=== PATIENT | female | born 1985 | race Caucasian/White ===

== ENCOUNTER 2017-03-16 17:20 | Emergency (ER) | payer MEDICAID ==
[~2017-03-16] VITALS: Ht 160 cm; Wt 62.3 kg
[2017-03-16 18:23] LABS: HEMATOCRIT 39.8 % (34.6-47.8); HEMOGLOBIN 13.5 g/dL (11.7-16.4); WHITE BLOOD COUNT 6.9 x10^3/uL (3.4-10)
[2017-03-16 18:37] LABS: BLOOD UREA NITROGEN 15 mg/dL (7-18)
[2017-03-16 19:40] VITALS: BP 112/72
== END 2017-03-16 19:50 | disposition home or self-care (01) ==
LOC: ED 19:43
DX: R00.0 Tachycardia, unspecified (principal); Z87.891 Personal history of nicotine dependence
CPT/HCPCS: 36415; 71010; 80048; 82040; 84439; 84443; 85025; 93005; 99285

== ENCOUNTER 2017-08-05 19:47 | Inpatient (IN) | payer MEDICAID ==
[~2017-08-05] VITALS: Ht 160 cm; Wt 67.5 kg
[2017-08-05 20:14] LABS: BASOPHILS # (AUTO) 0.07 x10^3/uL (0-0.1); BASOPHILS % (AUTO) 1 % (0-1); EOSINOPHILS # (AUTO) 0.34 x10^3/uL (0-0.4); EOSINOPHILS % (AUTO) 5 % (1-7); LYMPHOCYTES # (AUTO) 2.14 x10^3/uL (1-3.4); LYMPHOCYTES % (AUTO) 28 % (22-44); MD NO; MEAN CORPUSCULAR HEMOGLOBIN 29.5 pg (27.0-34.8); MEAN CORPUSCULAR HGB CONC 33.6 g/dL (32.4-35.8); MEAN CORPUSCULAR VOLUME 87.6 fL (80-100); MONOCYTES # (AUTO) 0.45 x10^3/uL (0.2-0.8); MONOCYTES % (AUTO) 6 % (2-9); NEUTROPHILS # (AUTO) 4.53 x10^3/uL (1.8-6.8); NEUTROPHILS % (AUTO) 60 % (42-75); PLATELET COUNT 339 x10^3/uL (130-400); RED CELL DISTRIBUTION WIDTH 13.4 % (9.6-15.2)
[2017-08-05 20:23] LABS: INTERNATIONAL NORMALIZED RATIO 0.97 (0.93-1.1)
[2017-08-05 20:25] LABS: ALANINE AMINOTRANSFERASE 19 U/L (12-78); ALBUMIN 3.9 g/dL (3.4-5.0); ANION GAP 7 mmol/L (5-15); CALCIUM 8.8 mg/dL (8.5-10.1); CHLORIDE 108 mmol/L (98-107); CREATININE 0.77 mg/dL (0.55-1.02)
[2017-08-05 20:27] LABS: ALKALINE PHOSPHATASE 47 U/L (45-117); BILIRUBIN,TOTAL 0.2 mg/dL (0.2-1.0); TOTAL PROTEIN 7.2 g/dL (6.4-8.2)
[2017-08-05] MEDS ORDERED: SODIUM CHLORIDE FLUSH 10ML SYR IVF ONE (20:30)
[2017-08-05] MEDS ORDERED: SODIUM CHLORIDE FLUSH 10ML SYR IVF PRN (23:00)
[2017-08-06 00:15] VITALS: BP 118/75
[2017-08-06] MEDS ORDERED: ACETAMINOPHEN 325 MG TABLET PO PRN (00:30)
[2017-08-06] MEDS: HEPARIN 5,000 UNITS/ML, 1ML SQ SCH ×3 (00:30→08:30)
[2017-08-06] MEDS ORDERED: POLYETHYLENE GLYCOL 17 GM PACKET PO PRN (00:30)
[2017-08-06] MEDS ORDERED: BISACODYL 10 MG SUPP PR PRN (00:30)
[2017-08-06] MEDS ORDERED: ONDANSETRON 2MG/ML, 2ML IVPush PRN (00:30)
[2017-08-06 07:16] VITALS: BP 108/59
[2017-08-06] MEDS ORDERED: GADOBUTROL 7.5 MMOL/7.5 ML PFS ONE (07:51)
[2017-08-06] MEDS ORDERED: SENNA/DOCUSATE TABLET PO SCH (09:00)
[2017-08-06] MEDS ORDERED: SODIUM CHLORIDE FLUSH 10ML SYR IVF SCH (09:00)
[2017-08-06 11:59] VITALS: BP 101/61
== END 2017-08-06 12:30 | disposition home or self-care (01) | DRG 93 ==
LOC: ED 22:19 → EDIP 23:17 → 4NOR 08-06 00:59
PROVIDERS: ADMIT Hospitalist; ATTEND Hospitalist
DX: R20.2 Paresthesia of skin (principal); R41.0 Disorientation, unspecified; R47.81 Slurred speech; Z82.5 Family history of asthma and other chronic lower respiratory diseases
CPT/HCPCS: 36415; 70450; 70553; 71045; 80053; 85025; 85610; 85730; 93005; 99285; A9585; J1644

== ENCOUNTER → 2018-07-01 | Outpatient (CLI) | payer MEDICAID | END | disposition home or self-care (01) | LOC: CFH 15:58 | PROVIDERS: ATTEND Internal Medicine Cardiovascular Disease | DX: R06.02 Shortness of breath (principal); R00.2 Palpitations | CPT/HCPCS: 93306 ==